=== PATIENT | female | born 1965 | race Caucasian/White ===

== ENCOUNTER 2019-11-14 18:49 | Emergency (ER) | payer BC, OTHER ==
[~2019-11-14] VITALS: Ht 170.2 cm; Wt 99.8 kg
[2019-11-14 18:55] VITALS: BP 135/89
[2019-11-14] MEDS ORDERED: TETANUS,DIPTH,PERTUSS P/F (BOOSTRIX) 0.5 ML VIAL IM ONE ×2 (19:09→19:15)
--- NOTE | 2019-11-14 19:13 | ED Upper Extremity ---
General Chief Complaint: Laceration Stated Complaint: L WRIST INJ Source: patient Exam Limitations: no limitations History of Present Illness Date Seen by Provider: Nov 14, 2019 Time Seen by Provider: 19:10 Initial Comments To ER with laceration to the palmar surface of the proximal left hand after she tripped and fell at home cutting this on a piece of metal edging outside in her yard. Tetanus is not up-to-date. Onset: just prior to arrival Severity: moderate Pain/Injury Location: left hand Method of Injury: fell Allergies and Home Medications Allergies Coded Allergies: No Known Drug Allergies (Unverified , 11/14/19) Home Medications Amoxicillin/Potassium Clav 1 Each Tablet, 1 EACH PO BID Prescribed by: DAKOTAH MCINTYRE on 11/14/191936 Patient Home Medication List Home Medication List Reviewed: Yes Review of Systems Constitutional: see HPI EENTM: see HPI Respiratory: no symptoms reported Cardiovascular: no symptoms reported Genitourinary: no symptoms reported Musculoskeletal: see HPI Skin: no symptoms reported Psychiatric/Neurological: No Symptoms Reported Past Lqgccsz-[id number]-[id number] Hx Patient Social History Recent Foreign Travel: No Contact w/Someone Who Travel: No Physical Exam Vital Signs Vital Signs - First Documented 11/14/19 18:55 Temp 37.0 Pulse 91 Resp 18 B/P (MAP) 135/89 (104) O2 Delivery Room Air Capillary Refill : Height, Weight, BMI Height: '" Weight: lbs. oz. kg; BMI Method: General Appearance: WD/WN, no apparent distress HEENT: PERRL/EOMI, normal ENT inspection Respiratory: no respiratory distress, no accessory muscle use Gastrointestinal: normal bowel sounds, non tender Shoulder: normal inspection, non-tender Elbow/Forearm: normal inspection, non-tender Hand: laceration (1.5; laceration to the midline palmar surface proximal left hand that measures 1.5 senators unlinked depth to the subcutaneous tissue. No foreign bodies identified. Anesthetized locally with 2 mL of 1% buffered lidocaine without epinephrine. Wound then scrubbed with chlorhexidine/saline solution and irrigated with 100 cc of the same. Closed with 3 simple interrupted sutures size 4-0 Prolene. ) Progress/Results/Core Measures Results/Orders My Orders Orders - DAKOTAH MCINTYRE APRN Hand, Left, 3 Views (11/14/19 19:09) Wrist, Left, 3 Views Or More (11/14/19 19:09) Amoxicillin/Clavulanate Tablet (Augmenti (11/14/19 19:15) Dipht,Pertuss(Acell),Tet Adult (Boostrix (11/14/19 19:15) Dipht,Pertuss(Acell),Tet Adult (Boostrix (11/14/19 19:09) Vital Signs/I&O 11/14/19 18:55 Temp 37.0 Pulse 91 Resp 18 B/P (MAP) 135/89 (104) O2 Delivery Room Air Departure Impression Primary Impression: Hand laceration Qualified Codes: S61.412A - Laceration without foreign body of left hand, initial encounter Disposition: HOME, SELF-CARE Condition: Stable Departure-Patient Inst. Decision time for Depature: 19:36 Referrals: NO,LOCAL PHYSICIAN (PCP/Family) Primary Care Physician Patient Instructions: Laceration Repair With Stitches (DC) Add. Discharge Instructions: Stitches out in 10 days. You can remove the dressing starting tonight or tomorrow in shower letting water run over this but don't soak it or submerge it in water until the stitches are out. Antibiotics as directed. Return to ER for any concerns. All discharge instructions reviewed with patient and/or family. Voiced understanding. Scripts Amoxicillin/Potassium Clav (Augmentin 875-125 Tablet) 1 Each Tablet 1 EACH PO BID, #6 TAB 0 Refills . Prov: DAKOTAH MCINTYRE APRN 11/14/19 DAKOTAH MCINTYRE APRN Nov 14, 2019 19:13
[2019-11-14] MEDS ORDERED: AUGMENTIN 875 MG TAB (AMOXICILLIN/CLAVULANATE) PO SCH (19:15)
[2019-11-14] MEDS ORDERED: AMOX-358 PO ×2 (19:37→19:39)
--- NOTE | 2019-11-14 20:11 | Diagnostic Imaging Report ---
INDICATION: Pain. COMPARISON: Imaging from the same date. TECHNIQUE: Three radiographs of the left wrist dated 11/14/2019 and three radiographs of the left hand dated 11/14/2019. FINDINGS: A ring is identified overlying the 4th digit. No acute fracture or dislocation. No destructive osseous process. Carpal alignment is well maintained. No suspicious radiopaque foreign body. IMPRESSION: No acute osseous abnormality. Dictated by: Dictated on workstation # [id number]
== END 2019-11-14 19:49 | disposition home or self-care (01) ==
LOC: ER 18:51
DX: S61.412A Laceration without foreign body of left hand, initial encounter (principal); W01.118A Fall on same level from slipping, tripping and stumbling with subsequent striking against other sharp object, initial encounter; Y92.017 Garden or yard in single-family (private) house as the place of occurrence of the external cause; Z23 Encounter for immunization
CPT/HCPCS: 73110; 73130; 90715

== ENCOUNTER → 2020-08-11 | Outpatient (CLI) | payer BC ==
[~2020-08-11] MED LIST: AMOX-358 PO
== END ==
LOC: RAD 15:27
DX: Z12.31 Encounter for screening mammogram for malignant neoplasm of breast (principal)
CPT/HCPCS: 77063; 77067